=== PATIENT | female | born 1955 | race African-American/Black ===

== ENCOUNTER → 2016-06-21 | Outpatient (CLI) | payer OTHER, BC ==
[2014-10-30 10:32] VITALS: BP 155/71
[~2016-06-21] MED LIST: AMLO5TAB4 PO; ASPI325T70 PO; FLUT16SP2 NS; GLIP10TA13 PO; IOHEXOL 180 MG/ML 10 ML VIAL. ONE; ISOS30TA4 PO; LISI10TA2 PO; LORA5TAB7 PO; METF500T4 PO; NAPR220T70 PO; NITR0.4T6 SL; TRAM50TA PO; methylPREDNISolone ACETATE 40 MG/ML VIAL. ONE; methylPREDNISolone ACETATE 80 MG/ML VIAL. ONE
--- NOTE | 2016-06-22 15:04 | PAIN ---
DATE OF SERVICE: 06/21/2016 DIAGNOSES: Lumbar radiculopathy with lumbar degenerative disk disease and lumbar spondylosis. HISTORY OF PRESENT ILLNESS: The patient is a 61-year-old female who returns for followup status post lumbar epidural steroid injection x 1 on ____. The patient reports very well 100% improvement until the last week or two. The pain is beginning to return now in the low back, bilateral lower extremities, right and left fairly equal with radiation of pain in the gluteus and bilateral posterolateral thighs, posterior right lower leg to the ankle on the right side only. The patient reports it is 8 on a scale of 10, it can be higher with increased activity. She has been more active than she was over the past few weeks and wonders if this may have increased pain to some extent, but otherwise is doing quite well. The patient reports no new motor or sensory deficits, no new bowel or bladder incontinence or other complaints. PHYSICAL EXAMINATION: VITAL SIGNS: The patient's blood pressure 161/97, pulse ____, respirations 18, temperature 97.6 degrees Fahrenheit, height is 5 feet 5 inches, weight is 206 pounds. GENERAL: The patient is awake, alert, oriented, appropriate, very pleasant demeanor. HEENT: Head shows normocephalic, atraumatic. Extraocular movements are intact and symmetrical. Oral cavity, mucous membranes are moist and pink. Dentition is intact. NECK: Shows anterior throat supple without palpable lymphadenopathy noted. Swallow reflex is symmetrical. CHEST: Shows normal on inspection. Breath sounds clear to auscultation bilaterally. HEART: Shows S1 and S2 clear. ABDOMEN: Soft, nontender, nondistended. No palpable organomegaly is noted. No rebound or guarding demonstrated. BACK: Shows spine grossly midline. ____ significant deviation or asymmetry. Normal appearing lumbar lordotic curvature and lumbar paraspinous muscles. No tenderness with radiation, but only mild diffuse tenderness in the lumbar paraspinous muscles themselves bilaterally. The patient reports no new changes in full rotation and motion both laterally as well as extension and flexion. EXTREMITIES: The patient's lower extremities show deep tendon reflexes at 1+ in the patellar and tendo calcaneus tendons. Motor exam is strong with 5/5 dorsiflexion and extension. Options were discussed with the patient. The patient's old chart was reviewed, as her current medication regimen updated. Current review of systems updated today as well. Plan on lumbar epidural steroid injection is the second in the series with fluoroscopic guidance. Risks were again discussed including, but not limited to bleeding, infection, possibility of epidural hematoma, subsequent neurologic compromise, dural puncture, headaches, spinal cord and/or nerve damage, side effects of steroid medication and poor results regarding pain control. The patient understands and wishes to proceed. The patient will return to clinic in approximately 2 weeks for followup. She was counseled as to return appointment, activity level and side effects to be aware of. DIAGNOSES: Lumbar radiculopathy with lumbar degenerative disk disease, lumbar spondylosis. PROCEDURE: Lumbar epidural steroid injection in translaminar approach at L5-S1 level using C-arm fluoroscopic guidance under sterile prep and drape and local anesthesia. Medications injected 120 mg of Depo-Medrol plus 10 mL of preservative-free normal saline and 2 mL of Isovue for contrast. CONDITION AT DISCHARGE: Stable. The patient tolerated the procedure well, had no complications. LIBERTAD QUINTANILLA MD DR: KIRSTIN/seymour JOB#: [id number] / [id number]
== END | disposition home or self-care (01) ==
LOC: PNCL 10:50
PROVIDERS: ATTEND Anesthesiology
DX: M51.16 Intervertebral disc disorders with radiculopathy, lumbar region (principal); M47.896 Other spondylosis, lumbar region
CPT/HCPCS: 62323; J1030; J1040

== ENCOUNTER → 2016-07-05 | Outpatient (CLI) | payer OTHER, BC ==
[2014-10-30 10:32] VITALS: BP 155/71
[~2016-07-05] MED LIST changes: -IOHEXOL 180 MG/ML 10 ML VIAL. ONE; -methylPREDNISolone ACETATE 40 MG/ML VIAL. ONE; -methylPREDNISolone ACETATE 80 MG/ML VIAL. ONE
--- NOTE | 2016-07-06 07:53 | PAIN ---
DATE OF SERVICE: 07/05/2016 PROGRESS NOTE FOR PAIN CLINIC DIAGNOSES: Lumbar radiculopathy with lumbar degenerative disk disease and lumbar spondylosis. HISTORY OF PRESENT ILLNESS: The patient is a 61-year-old female who returns for followup status post lumbar epidural steroid injection x 2. The patient reports about 50% improvement overall and feels much better than she did with her low back and left lower extremity pain, still some twinging pain in her left lower leg on the lateral and posterior aspect, but only minimal. The patient reports 3 on a scale of 10 at absolute worse. She has been doing all of her activities of daily living with very good ease and comfort, increasing her activity with more comfort, has been trying to walk and do some stretching more recently as well, which she feels does help decrease the pain, but at a lower level. The patient reports no new motor or sensory deficits, no new bowel or bladder incontinence or other complaints. The patient describes the pain in the low back, in the left hip posteriorly, posterior thigh and posterior lower leg, again very minimal with pain level at this time. PHYSICAL EXAMINATION: VITAL SIGNS: The patient's blood pressure 151/85, pulse is 69, respirations 18, temperature 98.2 degrees Fahrenheit, height 5 feet 5 inches, weight is 208 pounds. GENERAL: The patient is awake, alert, oriented, appropriate, very pleasant demeanor. HEENT: Head shows normocephalic, atraumatic. Extraocular movements are intact and symmetrical. Oral cavity, mucous membranes are moist and pink. Dentition is intact. NECK: Shows anterior throat supple without palpable lymphadenopathy noted. Swallow reflex is symmetrical. CHEST: Shows normal on inspection. Breath sounds clear to auscultation bilaterally. HEART: Shows S1 and S2 clear. ABDOMEN: Soft, nontender, nondistended. BACK: The patient's back shows moderate tenderness with palpation in the lower lumbar distribution, only diffusely in the lumbar paraspinous muscles and only very minimally with palpation. No radiation. No asymmetry, no trigger points, no tenderness over the sacrum or sacroiliac regions. EXTREMITIES: Lower extremities showed deep tendon reflexes 1+ in the patellar and tendo calcaneus tendons. Motor exam is strong with 5/5 dorsiflexion, extension, quadriceps and hamstring flexion and equal bilaterally. Options were discussed with the patient at this time. The patient's old chart was reviewed as her current medication regimen updated. Current review of systems updated today as well. We will proceed with holding any further injections at this time per her choice. She would like to increase her activity, increase stretching and strengthening exercises, which we showed her some exercises to do today and stretching exercises. She will maintain these and return on as needed basis at this time. She was counseled as to activity levels, return of pain and how to contact the office if anything is necessary in the future. LIBERTAD QUINTANILLA MD DR: KIRSTIN/seymour JOB#: [id number] / [id number]
== END | disposition home or self-care (01) ==
LOC: PNCL 10:05
PROVIDERS: ATTEND Anesthesiology
DX: M51.16 Intervertebral disc disorders with radiculopathy, lumbar region (principal); M47.896 Other spondylosis, lumbar region
CPT/HCPCS: 99212

== ENCOUNTER → 2016-08-17 | Outpatient (CLI) | payer OTHER, BC ==
[2014-10-30 10:32] VITALS: BP 155/71
--- NOTE | 2016-08-17 16:21 | KCIC ---
Bilateral digital screening mammograms with CAD: HISTORY Routine screening. COMPARISON Comparison is made to previous studies dated 05/11/2015 and 02/10/2014. FINDINGS Breast density category A. The skin and nipples show no abnormalities. No abnormal lymph nodes are seen in the axilla. The breast parenchyma is predominately fatty. There are no dominant masses, suspicious calcifications or architectural distortions. IMPRESSION No evidence of malignancy. Recommend routine annual mammographic screening. This study was interpreted with the benefit of Computerized Aided Detection (CAD). Mammography is not 100% sensitive in detecting breast cancer. Therefore, a self breast exam and a clinical breast exam are very important. A negative mammogram does not negate a clinically suspicious finding and should not result in a delay in biopsying a clinically suspicious abnormality. BI-RADS category 1. Negative. This patient's information has been entered into a reminder system for the patient to be notified with the results of this examination and a target date for her next mammograms. Electronically signed by: Maria De Jesus Donnelly MD (Aug 17, 2016 16:18:57)
== END | disposition home or self-care (01) ==
LOC: KCIC MAMMO 15:21
PROVIDERS: ATTEND Family Medicine
DX: Z12.31 Encounter for screening mammogram for malignant neoplasm of breast (principal)
CPT/HCPCS: G0202; 77067

== ENCOUNTER → 2016-10-23 | Outpatient (CLI) | payer OTHER, BC ==
[2014-10-30 10:32] VITALS: BP 155/71
[~2016-10-23] MED LIST changes: +IOHEXOL 180 MG/ML 10 ML VIAL. ONE; +NITR0.4T22 SL; -NITR0.4T6 SL; +methylPREDNISolone ACETATE 40 MG/ML VIAL. ONE; +methylPREDNISolone ACETATE 80 MG/ML VIAL. ONE
--- NOTE | 2016-10-24 03:06 | PAIN ---
DATE OF SERVICE: PROGRESS NOTE FOR PAIN CLINIC DIAGNOSES: Lumbar radiculopathy with lumbar degenerative disk disease and lumbar spondylosis. HISTORY OF PRESENT ILLNESS: The patient is a 61-year-old female, who returns for followup, status post lumbar epidural steroid injection x 1 on 06/21/2016. The patient reports that she did very well with this with about a 50% overall improvement. The patient reports that the pain is returning now over the past few weeks in the low back and bilateral lower extremities. It is a pulling/stretching pain and is radiating also to the lower extremities - off and on and ____ is a 9 on a scale of 10 at its worst. The patient reports that it is waking her from sleep occasionally, but not every night. She sleeps for 6-7 hours at a time generally, but if she lies on her back for too long, she does get the pain down both of her legs. The patient reports that it is worse with standing and walking, generally better with sitting. The patient reports no new motor or sensory deficits, no new bowel or bladder incontinence or other complaints. It is worst in the morning. PHYSICAL EXAMINATION: VITAL SIGNS: Today, the patient's blood pressure is 161/95, pulse 57, respirations are 20, and temperature 97.9 degrees Fahrenheit. Height is 5 feet 5 inches, weight is 209 pounds. GENERAL: The patient is awake, alert, oriented, and appropriate, very pleasant demeanor. HEENT: Head shows normocephalic, atraumatic. Extraocular movements are intact and symmetrical. Oral cavity: Mucous membranes are moist and pink. Dentition is intact. NECK: Shows anterior throat supple without palpable lymphadenopathy noted. Swallow reflex is symmetrical. CHEST: Shows normal on inspection. Breath sounds are clear to auscultation bilaterally. HEART: Shows S1 and S2 clear. ABDOMEN: Soft, nontender, and nondistended. BACK: The patient's back shows spine grossly midline. Neck shows that cervical paraspinous muscles are symmetrical. On inspection with palpation, shows some mild tenderness, but only diffusely in the base of the cervical paraspinous musculature. The patient's low back shows symmetrical lumbar paraspinous musculature with some moderate tenderness to palpation in the middle and lower distribution of the paraspinous muscles ____ diffusely and only with deep palpation. No tenderness over the sacrum or sacroiliac regions. Lower extremities show deep tendon reflexes at 1+ in the patellar and tendocalcaneus tendons, are equal. Motor exam is strong with 5/5 dorsiflexion, extension, quadriceps, and hamstring flexion and symmetrical. PLAN: Options were discussed with the patient at this time. The patient's old chart was reviewed. Her current medication regimen updated. Current review of systems updated today as well and we will proceed with the second in this series of lumbar epidural steroid injection using fluoroscopic guidance. Risks were again discussed, including, but not limited to bleeding, infection, possibility of epidural hematoma, subsequent neurologic compromise, dural puncture, headaches, spinal cord and/or nerve damage, side effects of steroid medication, and poor results regarding pain control. The patient understands and wishes to proceed. The patient will return to clinic in approximately 2 weeks for followup, was counseled on return appointment, activity level, and side effects to be aware of. DIAGNOSIS: Lumbar radiculopathy with lumbar degenerative disk disease and lumbar spondylosis. PROCEDURES: Lumbar epidural steroid injection via translaminar approach at the L5-S1 level using C-arm fluoroscopic guidance under sterile prep and drape using local anesthetic. MEDICATION INJECTED: Depo-Medrol 120 mg plus 10 mL of preservative-free normal saline and 2 mL of Isovue for contrast. CONDITION AT DISCHARGE: Stable. The patient tolerated the procedure well, had no complications. LIBERTAD QUINTANILLA MD DR: KIRSTIN/seymour JOB#: [id number] / [id number]
== END | disposition home or self-care (01) ==
LOC: PNCL 10:39
PROVIDERS: ATTEND Anesthesiology
DX: M51.16 Intervertebral disc disorders with radiculopathy, lumbar region (principal); M47.26 Other spondylosis with radiculopathy, lumbar region
CPT/HCPCS: 62323; J1030; J1040

== ENCOUNTER → 2017-01-09 | Outpatient (CLI) | payer OTHER, BC ==
[2014-10-30 10:32] VITALS: BP 155/71
--- NOTE | 2017-01-09 13:51 | PAIN ---
DATE OF SERVICE: 01/09/2017 PROGRESS NOTE FOR PAIN CLINIC DIAGNOSES: Lumbar radiculopathy with lumbar degenerative disk disease and lumbar spondylosis. HISTORY OF PRESENT ILLNESS: The patient is a 61-year-old female who returns for followup status post previous lumbar epidural steroid injections, last seen 10/28/2016. The patient reports doing very well after the last injection with about 75% improvement without difficulty or any complications. The patient reports she has been increasing her activity with greater ease and comfort, but the pain has begun to return now in the low back, bilateral lower extremities, mostly in the posterior gluteus, posterior lateral thighs, posterior lateral lower legs and numbness in the right foot greater than the left, described as burning, stabbing, and radiating, rates 8 on a scale of 10 at its least and at its worst. The patient reports it has come back over about the past month or two very gradually. No new motor or sensory deficits. No new bowel or bladder incontinence. No injuries. No new accidents. PHYSICAL EXAMINATION: VITAL SIGNS: The patient's blood pressure 150/80, pulse 67, respirations 18, temperature is 97.7 degrees Fahrenheit, height is 5 feet 5 inches, weighs 207 pounds. GENERAL: The patient is awake, alert, oriented, appropriate, very pleasant demeanor. HEENT: Head shows normocephalic, atraumatic. Extraocular movements are intact and symmetrical. Oral cavity, mucous membranes moist and pink. Dentition is intact. NECK: Shows anterior throat supple without palpable lymphadenopathy noted. Swallow reflex is symmetrical. CHEST: Shows normal on inspection. Breath sounds clear to auscultation bilaterally. HEART: Shows S1 and S2 clear. ABDOMEN: Soft, nontender, nondistended. No palpable organomegaly is noted. No rebound or guarding demonstrated. BACK: Shows spine grossly midline. Normal appearing thoracic kyphosis and lumbar lordotic curvature. Lumbar paraspinous musculature shows some moderate tenderness with palpation, but is symmetrical on inspection and without radiation, diffusely tender only mainly in the middle and lower distribution bilaterally. No tenderness over the sacrum or sacroiliac regions. The patient shows good rotation and motion of the lumbar spine, both laterally as well as extension and flexion. Lower extremities showed deep tendon reflexes at 1+/4 in the patellar and tendocalcaneus tendons are equal. Motor exam is strong with 5/5 dorsiflexion and extension and equal bilaterally. Options were discussed with the patient. The patient's old chart was reviewed. Her current medication regimen updated. Current review of systems updated today as well and we will proceed with a lumbar epidural steroid injection first in the series with fluoroscopic guidance. Risks were again discussed including, but not limited to bleeding, infection, possibility of epidural hematoma, subsequent neurologic compromise, dural puncture, headaches, spinal cord and/or nerve damage, side effects of steroid medication and poor results regarding pain control. The patient understands and wishes to proceed. The patient will return to clinic in approximately 2 weeks for followup. She was counseled on return appointment, activity level and side effects to be aware of. DIAGNOSES: Lumbar radiculopathy with lumbar degenerative disk disease, and lumbar spondylosis. PROCEDURE: Lumbar epidural steroid injection via translaminar approach at L5-S1 level using C-arm fluoroscopic guidance under sterile prep and drape using local anesthetic. MEDICATIONS INJECTED: A total of 120 mg of Depo-Medrol plus 10 mL of preservative-free normal saline and 2 mL of Isovue for contrast. CONDITION AT DISCHARGE: Stable. The patient tolerated the procedure well, had no complications. LIBERTAD QUINTANILLA MD DR: KISRTIN/seymour JOB#: [id number] / [id number]
== END | disposition home or self-care (01) ==
LOC: PNCL 09:44
PROVIDERS: ATTEND Anesthesiology
DX: M51.16 Intervertebral disc disorders with radiculopathy, lumbar region (principal); M47.26 Other spondylosis with radiculopathy, lumbar region
CPT/HCPCS: 62323; J1030; J1040

== ENCOUNTER → 2017-01-23 | Outpatient (CLI) | payer OTHER, BC ==
[2014-10-30 10:32] VITALS: BP 155/71
[~2017-01-23] MED LIST changes: -IOHEXOL 180 MG/ML 10 ML VIAL. ONE; -methylPREDNISolone ACETATE 40 MG/ML VIAL. ONE; -methylPREDNISolone ACETATE 80 MG/ML VIAL. ONE
--- NOTE | 2017-01-23 22:34 | PAIN ---
DATE OF SERVICE: 01/23/2017 DIAGNOSES: Lumbar radiculopathy with lumbar degenerative disk disease and lumbar spondylosis. HISTORY OF PRESENT ILLNESS: This is a 61-year-old female who returns for followup status post lumbar epidural steroid injection x 1 this series. The patient reports she did very well with at least 50% improvement, initially about ____ improvement, now is about 50% improved, but she is still feeling quite good after first couple weeks after the injection. The patient reports still some pain in the right posterior back and right posterior hip, rates as a 4 on a scale of 10 at its worst ____ is a dull pain that is off and on, is not constant, also some numbness in the second, third and fourth toes on the right foot without pain, just numbness and tingling, which is annoying, but not painful by the patient's description. The patient reports no new motor or sensory deficits. No new bowel or bladder incontinence or other complaints. Reports it does not awaken her from sleep. She is sleeping well at least about 8 hours at night and is performing her activities of daily living with good comfort and ease with normal activities. The patient has been exercising and stretching more than normal and reports she feels this may be helping as well. PHYSICAL EXAMINATION: VITAL SIGNS: Today, the patient's blood pressure is 157/81, pulse 61, respirations 18, temperature 98.2 degrees Fahrenheit, height is 5 feet 5-1/2 inches and weighs 211 pounds. GENERAL: The patient is awake, alert, oriented, appropriate, very pleasant demeanor. HEENT: Shows normocephalic, atraumatic. Extraocular movements are intact, symmetrical. Oral cavity, mucous membranes are moist and pink. Dentition is intact. NECK: Shows anterior throat supple without palpable lymphadenopathy noted. Swallow reflex is symmetrical. CHEST: Normal on inspection. Breath sounds are clear to auscultation bilaterally. HEART: Shows S1 and S2 clear. ABDOMEN: Soft, nontender, nondistended. No palpable organomegaly is noted. BACK: Shows spine grossly midline. Normal appearing thoracic kyphosis and lumbar lordotic curvature. Lumbar paraspinous muscle shows symmetrical on inspection with palpation shows some moderate tenderness to palpation, but only inferiorly and only diffusely without significant radiation. The patient shows good rotation and motion of the lumbar spine, both laterally as well as extension and flexion without difficulty. EXTREMITIES: Lower extremities showed deep tendon reflexes 1+ in the patellar and tendo calcaneus tendons. Motor exam is strong with 5/5 dorsiflexion, extension, quadriceps and hamstring flexion and symmetrical. Peripheral pulses are 1+ posterior tibial. No peripheral edema is noted. Options were discussed with the patient. The patient's old chart was reviewed as her current medication regimen and updated. Current review of systems is updated today as well. We will hold on any further injections as she would like to give herself some more time and see how the pain does and the numbness in the toes as well. We discussed some other options. We will try a Medrol Dosepak to see if this may decrease some of the residual pain and the numbness in the toes. The patient was cautioned as to side effects with the medications, especially increased blood glucose and we will take less than the prescribed amount about 50% of the tapered dose and see how this does to ____ the pain and numbness. The patient understands and agrees and will follow up on as needed basis at this time, was encouraged to call if the pain returns or becomes worse. LIBERTAD QUINTANILLA MD DR: KIRSTIN/seymour JOB#: [id number] / [id number]
== END | disposition home or self-care (01) ==
LOC: PNCL 14:10
PROVIDERS: ATTEND Anesthesiology
DX: M51.16 Intervertebral disc disorders with radiculopathy, lumbar region (principal); M47.896 Other spondylosis, lumbar region
CPT/HCPCS: 99212

== ENCOUNTER → 2017-07-02 | Outpatient (CLI) | payer OTHER, BC | END | disposition home or self-care (01) | LOC: PNCL 09:38 | DX: M51.16 Intervertebral disc disorders with radiculopathy, lumbar region (principal); M47.896 Other spondylosis, lumbar region | CPT/HCPCS: 99212 ==

== ENCOUNTER → 2017-07-24 | Outpatient (CLI) | payer OTHER, BC ==
[~2017-07-24] MED LIST changes: -AMLO5TAB4 PO; -ASPI325T70 PO; -FLUT16SP2 NS; -GLIP10TA13 PO; +IOHEXOL 180 MG/ML 10 ML VIAL.; -ISOS30TA4 PO; -LISI10TA2 PO; -LORA5TAB7 PO; -METF500T4 PO; -NAPR220T70 PO; -NITR0.4T22 SL; -TRAM50TA PO; +methylPREDNISolone ACETATE 40 MG/ML VIAL.; +methylPREDNISolone ACETATE 80 MG/ML VIAL.
== END | disposition home or self-care (01) ==
LOC: PNCL 09:53
DX: M51.16 Intervertebral disc disorders with radiculopathy, lumbar region (principal); M47.26 Other spondylosis with radiculopathy, lumbar region
CPT/HCPCS: 62323; J1030; J1040; Q9965

== ENCOUNTER → 2018-04-22 | Outpatient (CLI) | payer OTHER, BC ==
[2014-10-30 10:32] VITALS: BP 155/71
[~2018-04-22] MED LIST changes: +AMLO5TAB4 PO; +ASPI325T70 PO; +FLUT16SP2 NS; +GLIP10TA13 PO; +IBUP-1007 PO; -IOHEXOL 180 MG/ML 10 ML VIAL.; +ISOS30TA4 PO; +KRIL1CAP23 PO; +LISI10TA2 PO; +LORA5TAB7 PO; +METF100010 PO; +METF500T16 PO; +MULT1TAB52 PO; +NAPR220T70 PO; +NITR0.4T22 SL; +OMEP20CA9 PO; +TRAM50TA PO; -methylPREDNISolone ACETATE 40 MG/ML VIAL.; -methylPREDNISolone ACETATE 80 MG/ML VIAL.
--- NOTE | 2018-04-22 12:43 | KCIC ---
Bilateral digital screening mammograms: Reason for examination: Routine screening. Comparison is made to previous studies dated 08/17/2016 and 05/11/2015. Interpretation is made with the benefit of CAD. The skin and nipples show no abnormalities. No abnormal lymph nodes are seen. The breast parenchyma is predominantly fatty. (Breast density: Category A.) There are no dominant masses, suspicious calcifications or architectural distortions. Impression: No evidence of malignancy. Recommend routine screening. BI-RADS Category 1: Negative. "Our facility is accredited by the [employer] Mammography [employer]." This patient's information has been entered into a reminder system for the patient to be notified with the results of her examination and a target date for the next mammogram. Electronically signed by: Mihaela Donnelly MD (04/22/2018 12:40 PM) [id number]
--- NOTE | 2018-04-22 15:05 | KCIC ---
HIP LEFT 2 VIEW, HIP RIGHT 2 VIEW History: Bilateral hip pain for 3 4 weeks. No known injury.. Comparison: None are available Two-view left hip demonstrates moderate primary osteoarthritis with joint space narrowing and marginal spurring. There are enthesophytes at the greater trochanter. Small left pelvic calcification compatible with a phlebolith. No acute fracture or bone destruction. There are a couple of dense cylindrical structures overlying the lower abdomen and pelvis. 2 views of the right hip demonstrate mild spurring at the right hip. No acute fracture or bone destruction. IMPRESSION: Degenerative changes, greater at the left hip. Electronically signed by: Valeriy Peterson MD (04/22/2018 3:01 PM) [id number]
== END | disposition home or self-care (01) ==
LOC: KCIC MAMMO 11:13
PROVIDERS: ATTEND Nurse Practitioner
DX: Z12.31 Encounter for screening mammogram for malignant neoplasm of breast (principal); M16.0 Bilateral primary osteoarthritis of hip
CPT/HCPCS: 73502; 77067

== ENCOUNTER → 2020-08-19 | Outpatient (CLI) | payer OTHER, BC ==
[2014-10-30 10:32] VITALS: BP 155/71
[~2020-08-19] MED LIST changes: -ISOS30TA4 PO; +ISOS30TA68 PO; +LISI10TA16 PO; -LISI10TA2 PO; +MULT-445 PO; -MULT1TAB52 PO; +OMEP20CA16 PO; -OMEP20CA9 PO
--- NOTE | 2020-08-19 14:16 | KCIC ---
Bilateral digital screening mammograms: Reason for examination: Routine screening. Comparison is made to previous studies dated back to 02/10/2014. Interpretation was made with the benefit of CAD. The skin and nipples show no abnormalities. No abnormal axillary lymph nodes are seen. The breast par enchyma shows scattered fibroglandular density. (Breast density: Category B.) There are no dominant m asses, suspicious calcifications or architectural distortions. A few punctate calcifications are agai n seen. Impression: No evidence of malignancy. Recommend routine screening. BI-RADS Category 1: Negative. "Our facility is accredited by the [employer] Mammography Program." This patient's information has been entered into a reminder system for the patient to be notified wit h the results of her examination and a target date for the next mammogram. Electronically signed by: Mihaela Donnelly MD (08/19/2020 2:14 PM) [id number]
== END ==
LOC: KCIC MAMMO 12:31
PROVIDERS: ATTEND Pediatrics
DX: Z12.31 Encounter for screening mammogram for malignant neoplasm of breast (principal)
CPT/HCPCS: 77067